=== PATIENT | male | born 1975 | race Caucasian/White ===

== ENCOUNTER → 2017-05-16 | Outpatient (CLI) | payer BC ==
[~2017-05-16] VITALS: Ht 172.7 cm; Wt 95.7 kg
[2017-05-16 16:15] VITALS: BP 131/89; PULSE 72; Ht 172.7 cm; Wt 95.7 kg
== END | disposition home or self-care (01) ==
LOC: C.NEUR 15:28
PROVIDERS: ATTEND Internal Medicine Pulmonary Disease
DX: R53.83 Other fatigue (principal); I10 Essential (primary) hypertension; R06.83 Snoring; R06.81 Apnea, not elsewhere classified